=== PATIENT | male | born 1960 | race Caucasian/White ===

== ENCOUNTER 2024-08-24 06:23 | Day surgery (SDC) | payer OTHER, SELFPAY | END 2024-08-24 08:44 | disposition home or self-care (01) | LOC: GI 06:23 | PROVIDERS: ATTENDING PHYSICIAN Internal Medicine Gastroenterology | DX: Z12.11 Encounter for screening for malignant neoplasm of colon (principal); K63.5 Polyp of colon; Z80.0 Family history of malignant neoplasm of digestive organs | CPT/HCPCS: 45385; 88305 ==